=== PATIENT | male | born 2000 | race Caucasian/White ===

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

== ENCOUNTER 2021-08-20 14:00 | Day surgery (SDC) | payer OTHER ==
[~2021-08-20] VITALS: Ht 167.6 cm; Wt 54.5 kg
[2021-08-20] MEDS ORDERED: LIDOCAINE 2% MDV 20ML VIAL SC ONE (16:20)
[2021-08-20] MEDS ORDERED: PERCOCET 5MG/325MG TAB PO ONE (17:10)
[2021-08-20] MEDS ORDERED: HOME MED LIST COMPLETE! XX SCH (18:50)
[2021-08-20] MEDS ORDERED: BUPIVACAINE HCL 0.25% 30ML VIAL As Ordered ONE (19:56)
[2021-08-20] MEDS ORDERED: OXYC1TAB23 PO ×2 (20:17→20:19)
[2021-08-20] MEDS ORDERED: dexameTHASONE 4 MG/ML 1ML VIAL (J1100 PER 1MG) As Ordered ONE (20:49)
[2021-08-20] MEDS ORDERED: ONDANSETRON 4MG/2ML VIAL As Ordered ONE (20:49)
[2021-08-20] MEDS ORDERED: KETOROLAC 60MG 2ML VIAL As Ordered ONE (20:49)
[2021-08-20] MEDS ORDERED: fentaNYL 100 MCG/2 ML INJECTION As Ordered ONE ×2 (20:49→21:03)
[2021-08-20] MEDS ORDERED: LIDOCAINE 2% 100MG/5ML SDV (FOR ANES.) As Ordered ONE (20:49)
[2021-08-20] MEDS ORDERED: METOCLOPRAMIDE INJ 10MG/2ML VIAL (J2765 PER 1) As Ordered ONE (20:49)
[2021-08-20] MEDS ORDERED: propofoL 200 MG/20 ML VIAL As Ordered ONE ×2 (20:49→20:50)
[2021-08-20] MEDS ORDERED: DESFLURANE 240 ML INHALANT As Ordered ONE (20:49)
[2021-08-20] MEDS ORDERED: MIDAZOLAM INJ 2MG/2ML VIAL (J2250 PER 1MG) As Ordered ONE (20:49)
[2021-08-20] MEDS ORDERED: KETAMINE HCL 200 MG/20 ML VIAL As Ordered ONE (20:56)
[2021-08-20] MEDS ORDERED: ceFAZolin 2 GM/D5W 50 ML IV BAG (J0690 PER 500MG) As Ordered ONE (20:59)
[2021-08-20] MEDS ORDERED: BACITRACIN OINTMENT 30GM TUBE As Ordered ONE (21:02)
[2021-08-20] MEDS ORDERED: LR 1,000 ML IV SCH (22:00)
[2021-08-20] MEDS ORDERED: fentaNYL 100 MCG/2 ML INJECTION IV PRN (22:00)
[2021-08-20] MEDS ORDERED: ONDANSETRON 4MG/2ML VIAL IV PRN (22:00)
[2021-08-20] MEDS ORDERED: METOCLOPRAMIDE INJ 10MG/2ML VIAL (J2765 PER 1) IV PRN (22:00)
[2021-08-20 22:28] VITALS: BP 116/77
== END 2021-08-20 22:50 | disposition home or self-care (01) ==
LOC: M ED 14:00 → M SDC 18:38
PROVIDERS: ATTEND Orthopaedic Surgery Hand Surgery
DX: S63.044A Dislocation of carpometacarpal joint of right thumb, initial encounter (principal); V29.9XXA Motorcycle rider (driver) (passenger) injured in unspecified traffic accident, initial encounter; Y93.9 Activity, unspecified; Y99.9 Unspecified external cause status; F17.218 Nicotine dependence, cigarettes, with other nicotine-induced disorders; F12.10 Cannabis abuse, uncomplicated; Y92.488 Other paved roadways as the place of occurrence of the external cause
CPT/HCPCS: 26650; 73130; 87426; 99284; C1713; J0690; J1100; J1885; J2250; J2405; J2765; J3010

== ENCOUNTER → 2021-09-08 | Outpatient (CLI) | payer OTHER ==
[~2021-09-08] MED LIST: OXYC1TAB23 PO
== END ==
LOC: M SOG 13:47
PROVIDERS: ATTEND Physician Assistant
DX: S63.044D Dislocation of carpometacarpal joint of right thumb, subsequent encounter (principal)

== ENCOUNTER → 2021-09-23 | Outpatient (CLI) | payer OTHER | LOC: M SOG 08:08 | PROVIDERS: ATTEND Physician Assistant | DX: S63.044D Dislocation of carpometacarpal joint of right thumb, subsequent encounter (principal) ==

== ENCOUNTER 2021-10-15 10:24 | Inpatient (IN) | payer OTHER ==
[2021-10-15] VITALS (9 sets, daily range): BP systolic 85–125; BP diastolic 53–83
[~2021-10-15] VITALS: Ht 175.3 cm; Wt 54.9 kg
[2021-10-15] MEDS ORDERED: BACTDSTA PO (10:42)
[2021-10-15] MEDS ORDERED: ceFAZolin 1GM VIAL (J0690 PER 500MG) As Ordered ONE (11:43)
[2021-10-15] MEDS ORDERED: MIDAZOLAM INJ 2MG/2ML VIAL (J2250 PER 1MG) As Ordered ONE (11:48)
[2021-10-15] MEDS ORDERED: fentaNYL 100 MCG/2 ML INJECTION As Ordered ONE ×2 (11:49→12:29)
[2021-10-15] MEDS ORDERED: ZOSYN 4.5GM VIAL (J2543) As Ordered ONE (11:51)
[2021-10-15] MEDS ORDERED: VANCOMYCIN 1000MG/20ML VIAL As Ordered ONE (11:51)
[2021-10-15] MEDS ORDERED: dexameTHASONE 4 MG/ML 1ML VIAL (J1100 PER 1MG) As Ordered ONE (12:19)
[2021-10-15] MEDS ORDERED: ONDANSETRON 4MG/2ML VIAL As Ordered ONE (12:19)
[2021-10-15] MEDS ORDERED: propofoL 200 MG/20 ML VIAL As Ordered ONE (12:24)
[2021-10-15] MEDS ORDERED: LIDOCAINE 2% 100MG/5ML SDV (FOR ANES.) As Ordered ONE (12:25)
[2021-10-15] MEDS ORDERED: ACETAMINOPHEN 1000MG 100ML IV BTL (OFIRMEV) (J0131 PER 10MG) As Ordered ONE (12:50)
[2021-10-15] MEDS ORDERED: KETOROLAC 60MG 2ML VIAL As Ordered ONE (12:51)
[2021-10-15] MEDS ORDERED: ACETAMINOPHEN TAB 650MG DOSE (2X325MG) PO PRN (13:30)
[2021-10-15] MEDS ORDERED: HYDROmorphone 2 MG TAB PO PRN (13:30)
[2021-10-15] MEDS ORDERED: SENNA 8.6 MG TAB (SENOKOT) PO PRN (13:30)
[2021-10-15] MEDS ORDERED: IBUPROFEN 600MG TAB PO PRN (13:30)
[2021-10-15] MEDS ORDERED: diphenhydrAMINE 50MG/ML VIAL (J1200) IV PRN (13:30)
[2021-10-15] MEDS ORDERED: ONDANSETRON 4MG/2ML VIAL IV PRN ×2 (13:30→13:40)
[2021-10-15] MEDS ORDERED: zolPIDEM TARTRATE 5 MG TAB PO PRN (13:30)
[2021-10-15] MEDS ORDERED: METOCLOPRAMIDE INJ 10MG/2ML VIAL (J2765 PER 1) IV PRN (13:40)
[2021-10-15] MEDS ORDERED: LR 1,000 ML IV SCH (13:40)
[2021-10-15] MEDS ORDERED: oxyCODONE 5MG TAB PO PRN (13:40)
[2021-10-15] MEDS ORDERED: fentaNYL 100 MCG/2 ML INJECTION IV PRN (13:40)
[2021-10-15] MEDS: MORPHINE 4 MG/ML 1ML VIAL/SYRINGE IV PRN (14:46)
[2021-10-15 15:12] LABS: BASO # 0.1 10^3/uL (0.0-0.2); BASO % 0.3 % (0.0-1.0); EOS # 0.4 10^3/uL (0.0-0.5); EOS % 2.5 % (0.0-3.0); HEMATOCRIT 43.8 % (42.0-52.0); HEMOGLOBIN 14.8 g/dl (13.5-17.5); LYMPH # 0.4 10^3/uL (1.5-5.0); LYMPH % 2.9 % (24.0-44.0); MEAN CORPUSCULAR HGB CONC 33.8 g/dl (32.0-36.5); MEAN CORPUSCULAR VOLUME 91.8 fl (80.0-96.0); MONO # 0.4 10^3/uL (0.0-0.8); MONO % 2.5 % (2.0-8.0); NEUTROPHILS # 13.7 10^3/uL (1.5-8.5); NEUTROPHILS % 91.1 % (36.0-66.0); PLATELET COUNT, AUTOMATED 269 10^3/uL (150-450); RED BLOOD COUNT 4.77 10^6/uL (4.30-6.10)
[2021-10-15 15:45] LABS: BLOOD UREA NITROGEN 11 MG/DL (7-18); CALCIUM LEVEL 9.2 MG/DL (8.5-10.1); CARBON DIOXIDE LEVEL 30 MEQ/L (21-32); CHLORIDE LEVEL 100 MEQ/L (98-107); CREATININE FOR GFR 1.15 MG/DL (0.70-1.30); GLUCOSE, FASTING 150 MG/DL (70-100); POTASSIUM SERUM 4.2 MEQ/L (3.5-5.1); SODIUM LEVEL 132 MEQ/L (136-145)
[2021-10-15] MEDS: PIPERACILLIN/TAZOBACTAM SOD 3.375 GM in D5W MINI-BAG PLUS 50 ML IV SCH (18:26)
[2021-10-15] MEDS: oxyCODONE 5MG TAB PO PRN (22:51)
[2021-10-16] VITALS: BP 92/64
[2021-10-16] MEDS ORDERED: NS 1,000 ML IV ONE (00:30)
[2021-10-16] MEDS ORDERED: VANCOMYCIN HCL 1,000 MG, VIAL MATE ADAPTER 1 EACH in D5W 250 ML IV SCH (01:00)
[2021-10-16] MEDS: PIPERACILLIN/TAZOBACTAM SOD 3.375 GM in D5W MINI-BAG PLUS 50 ML IV SCH ×4 (02:19→18:19)
[2021-10-16] MEDS: oxyCODONE 5MG TAB PO PRN ×4 (03:56→23:38)
[2021-10-16 04:00] VITALS: BP 100/55
[2021-10-16 06:00] VITALS: BP 100/60
[2021-10-16 06:24] LABS: HEMATOCRIT 39.9 % (42.0-52.0); HEMOGLOBIN 13.4 g/dl (13.5-17.5); MEAN CORPUSCULAR HEMOGLOBIN 31.1 pg (27.0-33.0); MEAN CORPUSCULAR HGB CONC 33.6 g/dl (32.0-36.5); MEAN CORPUSCULAR VOLUME 92.6 fl (80.0-96.0); PLATELET COUNT, AUTOMATED 286 10^3/uL (150-450); RED BLOOD COUNT 4.31 10^6/uL (4.30-6.10); WHITE BLOOD COUNT 11.4 10^3/uL (4.0-10.0)
[2021-10-16 07:23] LABS: BLOOD UREA NITROGEN 10 MG/DL (7-18); CALCIUM LEVEL 9.4 MG/DL (8.5-10.1); CARBON DIOXIDE LEVEL 29 MEQ/L (21-32); CHLORIDE LEVEL 108 MEQ/L (98-107); CREATININE FOR GFR 0.94 MG/DL (0.70-1.30); GLUCOSE, FASTING 100 MG/DL (70-100); POTASSIUM SERUM 4.4 MEQ/L (3.5-5.1); SODIUM LEVEL 140 MEQ/L (136-145)
[2021-10-16 10:00] VITALS: BP 107/65
[2021-10-16] MEDS: MORPHINE 4 MG/ML 1ML VIAL/SYRINGE IV PRN ×3 (10:54→21:45)
[2021-10-16] MEDS: ENOXAPARIN 40MG/0.4ML SYRINGE (J1650 PER 10MG) SC SCH (12:30)
[2021-10-16 14:43] VITALS: BP 107/66
[2021-10-16 20:12] VITALS: BP 113/67
[2021-10-17] MEDS: PIPERACILLIN/TAZOBACTAM SOD 3.375 GM in D5W MINI-BAG PLUS 50 ML IV SCH ×2 (00:14→06:07)
[2021-10-17 05:47] VITALS: BP 111/66
[2021-10-17] MEDS: MORPHINE 4 MG/ML 1ML VIAL/SYRINGE IV PRN (06:07)
[2021-10-17 07:20] LABS: HEMATOCRIT 44.5 % (42.0-52.0); HEMOGLOBIN 14.7 g/dl (13.5-17.5); MEAN CORPUSCULAR HEMOGLOBIN 30.7 pg (27.0-33.0); MEAN CORPUSCULAR VOLUME 92.9 fl (80.0-96.0); PLATELET COUNT, AUTOMATED 310 10^3/uL (150-450); RED BLOOD COUNT 4.79 10^6/uL (4.30-6.10); WHITE BLOOD COUNT 8.6 10^3/uL (4.0-10.0)
[2021-10-17 07:46] LABS: BLOOD UREA NITROGEN 9 MG/DL (7-18); C REACTIVE PROTEIN QUANTITATIV 9.53 MG/DL (0.00-0.30); CARBON DIOXIDE LEVEL 30 MEQ/L (21-32); CHLORIDE LEVEL 107 MEQ/L (98-107); CREATININE FOR GFR 0.79 MG/DL (0.70-1.30); GLUCOSE, FASTING 94 MG/DL (70-100); POTASSIUM SERUM 4.2 MEQ/L (3.5-5.1); SODIUM LEVEL 141 MEQ/L (136-145)
[2021-10-17] MEDS ORDERED: IBUPROFEN 600MG TAB PO PRN (10:45)
[2021-10-17] MEDS ORDERED: oxyCODONE 5MG TAB PO PRN (10:45)
[2021-10-17] MEDS ORDERED: AMOX500T PO (12:10)
[2021-10-17] MEDS ORDERED: ACID1TAB PO (12:10)
[2021-10-17] MEDS ORDERED: PIPERACILLIN/TAZOBACTAM SOD 3.375 GM in D5W MINI-BAG PLUS 50 ML IV SCH (13:00)
[2021-10-17] MEDS: ENOXAPARIN 40MG/0.4ML SYRINGE (J1650 PER 10MG) SC SCH (13:13)
[2021-10-17 14:00] VITALS: BP 115/71
== END 2021-10-17 15:08 | disposition home or self-care (01) | DRG 349 ==
LOC: M SDC 10:24 → M MSPAV 15:02
PROVIDERS: ADMIT Internal Medicine Nephrology; ATTEND Orthopaedic Surgery Hand Surgery
PROC: 0X9J0ZZ Drainage of Right Hand, Open Approach (ICD-10-PCS; principal; 2021-10-15 11:30)
DX: T84.7XXA Infection and inflammatory reaction due to other internal orthopedic prosthetic devices, implants and grafts, initial encounter (principal); M86.9 Osteomyelitis, unspecified; Z79.2 Long term (current) use of antibiotics; Z20.822 Contact with and (suspected) exposure to COVID-19; B95.0 Streptococcus, group A, as the cause of diseases classified elsewhere

== ENCOUNTER → 2021-10-30 | Outpatient (CLI) | payer OTHER ==
[~2021-10-30] MED LIST changes: +ACID1TAB PO; +AMOX500T PO; +BACTDSTA PO
[2021-10-30 16:26] LABS: BASO # 0.1 10^3/uL (0.0-0.2); BASO % 1.3 % (0.0-1.0); EOS # 0.4 10^3/uL (0.0-0.5); EOS % 6.5 % (0.0-3.0); HEMATOCRIT 45.1 % (42.0-52.0); HEMOGLOBIN 14.8 g/dl (13.5-17.5); LYMPH # 2.4 10^3/uL (1.5-5.0); LYMPH % 40.9 % (24.0-44.0); MEAN CORPUSCULAR HEMOGLOBIN 29.9 pg (27.0-33.0); MEAN CORPUSCULAR HGB CONC 32.8 g/dl (32.0-36.5); MEAN CORPUSCULAR VOLUME 91.1 fl (80.0-96.0); MONO # 0.4 10^3/uL (0.0-0.8); MONO % 6.7 % (2.0-8.0); NEUTROPHILS # 2.7 10^3/uL (1.5-8.5); NEUTROPHILS % 44.6 % (36.0-66.0); PLATELET COUNT, AUTOMATED 422 10^3/uL (150-450); RED BLOOD COUNT 4.95 10^6/uL (4.30-6.10)
== END ==
LOC: M LAB 15:59
PROVIDERS: ATTEND Internal Medicine Infectious Disease
DX: M86.141 Other acute osteomyelitis, right hand (principal)

== ENCOUNTER → 2021-10-31 | Outpatient (CLI) | payer OTHER | LOC: M SOG 08:38 | PROVIDERS: ATTEND Orthopaedic Surgery Hand Surgery | DX: T81.42XD Infection following a procedure, deep incisional surgical site, subsequent encounter (principal) ==

== ENCOUNTER → 2021-11-04 | Outpatient (CLI) | payer OTHER | LOC: M LAB 16:46 | PROVIDERS: ATTEND Orthopaedic Surgery Hand Surgery | DX: T81.42XD Infection following a procedure, deep incisional surgical site, subsequent encounter (principal) ==